=== PATIENT | female | born 1985 | race Caucasian/White ===

== ENCOUNTER 2023-05-29 10:25 | Emergency (ER) | payer OTHER ==
[~2023-05-29] VITALS: Ht 165.1 cm; Wt 77.1 kg
[~2023-05-29 10:25] MED LIST: LEVE1000 MT
[2023-05-29 10:33] VITALS: O2SAT 97
[2023-05-29] MEDS ORDERED: LEVETIRACETAM 1000MG PREMIX 100 ML IV ONE (11:00)
[2023-05-29 12:15] LABS: BASOPHILS % 0.2 % (0.0-2.0); HEMATOCRIT. 38.4 % (36.0-48.0); HEMOGLOBIN. 12.6 g/dL (12.0-16.0); MEAN CORPUSCULAR HEMOGLOBIN 31.2 pg (28.0-32.0); MEAN CORPUSCULAR HGB CONC 32.9 g/dL (31.0-37.0); MEAN CORPUSCULAR VOLUME 94.7 fL (81.0-99.0); MEAN PLATELET VOLUME 9.2 fl (7.4-10.4); MONOCYTES % 7.8 % (2.0-8.0); PLATELET 195 x1000/uL (130-400); RED BLOOD CELL COUNT 4.05 mill/uL (4.2-5.4); RED CELL DISTRIBUTION WIDTH 15.5 % (11.6-14.6); WHITE BLOOD COUNT 6.7 x1000/uL (4.5-11.0)
[2023-05-29 12:36] LABS: CLARITY URINE CLEAR (CLEAR); COLOR URINE YELLOW (YELLOW); GLUCOSE URINE NEGATIVE (NEGATIVE); KETONES URINE NEGATIVE (NEGATIVE); LEUKOCYTE ESTERASE URINE NEGATIVE (NEGATIVE); NITRITE URINE NEGATIVE (NEGATIVE); OCCULT BLOOD URINE NEGATIVE (NEGATIVE); PH URINE 6.5 (4.5-8.0); PROTEIN URINE NEGATIVE (NEGATIVE); SPECIFIC GRAVITY URINE 1.011 (1.005-1.030); UROBILINOGEN URINE 0.2 E.U./dL (0.2-1.0)
[2023-05-29] MEDS ORDERED: KEPP500 PO (13:27)
[2023-05-29 13:48] LABS: INDEX HEMOLYSI 2 (1-3); INDEX ICTERIC 1 (1-4); INDEX LIPEMIC 1 (1-3)
[2023-05-29 14:16] LABS: ALANINE AMINOTRANSFERASE 19 IU/L (13-61); ALBUMIN 3.3 g/dL (3.4-5.0); ASPARTATE AMINOTRANSFERASE 17 IU/L (15-37); BILIRUBIN TOTAL 0.3 mg/dL (0.1-1.0); CALCIUM 8.6 mg/dL (8.5-10.1); CARBON DIOXIDE 20 mEq/L (21-32); CREATININE 0.5 mg/dL (0.6-1.3); ETHANOL BLOOD < 10 mg/dL (<10); GLUCOSE 90 mg/dL (70-105); PROTEIN TOTAL 7.2 g/dL (6.0-8.3); UREA NITROGEN BLOOD 6 mg/dL (7-21)
[2023-05-29 14:20] VITALS: BP 100/52; PULSE 61; RESP 18; TEMP 97.9
[2023-05-29 16:00] LABS: CHLORIDE 111 mEq/L (98-107); SODIUM 141 mEq/L (136-145)
[2023-05-29 18:54] LABS: *AMPHETAMINES SCREEN URINE NEGATIVE (NEGATIVE); *BARBITURATES SCREEN URINE NEGATIVE (NEGATIVE); *BENZODIAZEPINES SCREEN URINE NEGATIVE (NEGATIVE); *COCAINE SCREEN URINE NEGATIVE (NEGATIVE); CANNABINOID URINE SCREEN NEGATIVE (NEGATIVE); ECSTASY MDMA SCREEN URINE NEGATIVE (NEGATIVE); OPIATES URINE SCREEN NEGATIVE (NEGATIVE); PHENCYCLIDINE URINE SCREEN NEGATIVE (NEGATIVE)
== END 2023-05-29 15:49 | disposition home or self-care (01) ==
LOC: ER 10:25
DX: R56.9 Unspecified convulsions (principal)
CPT/HCPCS: 80053; 80305; 81003; 80320; 85025; 36415; 96365; 99284; J1953; Z7610 ×2; G0480

== ENCOUNTER 2023-06-28 17:55 | Emergency (ER) | payer OTHER ==
[~2023-06-28] VITALS: Ht 177.8 cm; Wt 73.0 kg
[~2023-06-28 17:55] MED LIST changes: +KEPP500 PO
[2023-06-28 17:57] VITALS: BP 114/66; PULSE 90; RESP 18; TEMP 99.3; O2SAT 99
[2023-06-28] MEDS ORDERED: LEVETIRACETAM 1000MG PREMIX 100 ML IV ONE (18:15)
[2023-06-28 19:48] LABS: BASOPHILS % 0.6 % (0.0-2.0); EOSINOPHILS % 1.9 % (0.0-5.0); HEMATOCRIT. 38.6 % (36.0-48.0); HEMOGLOBIN. 12.9 g/dL (12.0-16.0); MEAN CORPUSCULAR HEMOGLOBIN 31.5 pg (28.0-32.0); MEAN CORPUSCULAR HGB CONC 33.5 g/dL (31.0-37.0); MEAN CORPUSCULAR VOLUME 93.9 fL (81.0-99.0); MONOCYTES % 6.7 % (2.0-8.0); NEUTROPHILS % 53.8 % (40.0-76.0); PLATELET 184 x1000/uL (130-400); RED BLOOD CELL COUNT 4.11 mill/uL (4.2-5.4); RED CELL DISTRIBUTION WIDTH 13.8 % (11.6-14.6)
[2023-06-28 19:57] LABS: DIFFERENTIAL COMMENT 1
[2023-06-28 19:58] LABS: CHLORIDE 110 mEq/L (98-107); INDEX HEMOLYSI 4 (1-3); INDEX ICTERIC 1 (1-4); INDEX LIPEMIC 1 (1-3); SODIUM 137 mEq/L (136-145)
[2023-06-28 20:08] LABS: ALANINE AMINOTRANSFERASE 20 IU/L (13-61); ALBUMIN 3.5 g/dL (3.4-5.0); ASPARTATE AMINOTRANSFERASE 29 IU/L (15-37); BILIRUBIN TOTAL 0.3 mg/dL (0.1-1.0); CARBON DIOXIDE 24 mEq/L (21-32); CREATININE 0.4 mg/dL (0.6-1.3); GLUCOSE 74 mg/dL (70-105); PHOSPHORUS 3.8 mg/dL (2.5-4.9); PROTEIN TOTAL 7.6 g/dL (6.0-8.3); UREA NITROGEN BLOOD 10 mg/dL (7-21)
[2023-06-28 20:10] LABS: HCG SCREEN NEGATIVE
[2023-06-28 20:22] LABS: POTASSIUM 4.7 mEq/L (3.5-5.1)
== END 2023-06-28 22:29 | disposition home or self-care (01) ==
LOC: ER 17:55
DX: R56.9 Unspecified convulsions (principal)
CPT/HCPCS: 80053; 82962; 84703; 83735; 84100; 85025; 36415; 93005; 96365; 99284; J1953; Z7610

== ENCOUNTER 2023-07-25 10:33 | Emergency (ER) | payer OTHER ==
[~2023-07-25] VITALS: Ht 170.2 cm; Wt 64.0 kg
[~2023-07-25 10:33] MED LIST changes: -KEPP500 PO
[2023-07-25 10:40] VITALS: O2SAT 97
[2023-07-25] MEDS ORDERED: LEVETIRACETAM 500MG PREMIX 100 ML IV ONE ×2 (12:30)
[2023-07-25 13:05] VITALS: BP 110/74; PULSE 95; RESP 20; TEMP 98.1
[2023-07-25 13:16] LABS: BASOPHILS % 0.4 % (0.0-2.0); EOSINOPHILS % 0.6 % (0.0-5.0); HEMATOCRIT. 42.1 % (36.0-48.0); HEMOGLOBIN. 14.4 g/dL (12.0-16.0); LYMPHOCYTES % 17.4 % (20.0-50.0); MEAN CORPUSCULAR HEMOGLOBIN 31.8 pg (28.0-32.0); MEAN CORPUSCULAR HGB CONC 34.2 g/dL (31.0-37.0); MEAN CORPUSCULAR VOLUME 93.2 fL (81.0-99.0); MEAN PLATELET VOLUME 9.6 fl (7.4-10.4); MONOCYTES % 5.7 % (2.0-8.0); NEUTROPHILS % 75.9 % (40.0-76.0); PLATELET 124 x1000/uL (130-400); RED BLOOD CELL COUNT 4.52 mill/uL (4.2-5.4); RED CELL DISTRIBUTION WIDTH 13.7 % (11.6-14.6); WHITE BLOOD COUNT 8.3 x1000/uL (4.5-11.0)
[2023-07-25 13:27] LABS: ALANINE AMINOTRANSFERASE 53 IU/L (10-49); ALBUMIN 4.3 g/dL (3.2-4.8); ASPARTATE AMINOTRANSFERASE 71 IU/L (<34); BILIRUBIN TOTAL 0.7 mg/dL (0.1-1.0); CALCIUM 8.8 mg/dL (8.7-10.4); CARBON DIOXIDE 24 mEq/L (21-32); CHLORIDE 103 mEq/L (98-107); CREATININE 0.5 mg/dL (0.6-1.0); GLUCOSE 71 mg/dL (70-105); POTASSIUM 3.9 mEq/L (3.5-5.1); PROTEIN TOTAL 7.7 g/dL (6.0-8.3); SODIUM 140 mEq/L (136-145); UREA NITROGEN BLOOD 15 mg/dL (9-23)
[2023-07-25 13:45] LABS: HCG SCREEN NEGATIVE
[2023-07-25] MEDS ORDERED: LEVE1000 MT ×3 (14:13→14:16)
[2023-07-25] MEDS ORDERED: ACETAMINOPHEN 325MG TABLET PO ONE (14:30)
== END 2023-07-25 17:33 | disposition home or self-care (01) ==
LOC: ER 11:10
DX: G40.909 Epilepsy, unspecified, not intractable, without status epilepticus (principal); F79 Unspecified intellectual disabilities; Z91.148 Patient's other noncompliance with medication regimen for other reason; Z86.73 Personal history of transient ischemic attack (TIA), and cerebral infarction without residual deficits
CPT/HCPCS: 99284; 96365; 80053; 84703; 85025; 36415; J1953

== ENCOUNTER 2023-07-26 23:46 | Emergency (ER) | payer OTHER ==
[~2023-07-26] VITALS: Ht 165.1 cm; Wt 77.0 kg
[2023-07-26 23:55] VITALS: O2SAT 97
[2023-07-27] MEDS ORDERED: LEVETIRACETAM 1000MG PREMIX 100 ML IV ONE (01:15)
[2023-07-27 04:49] VITALS: BP 124/66; PULSE 62; RESP 18; TEMP 98.5
== END 2023-07-27 04:53 | disposition home or self-care (01) ==
LOC: ER 23:46
DX: R56.9 Unspecified convulsions (principal); Z98.890 Other specified postprocedural states
CPT/HCPCS: 99291; 96374; J1953

== ENCOUNTER 2023-07-27 07:13 | Emergency (ER) | payer OTHER ==
[~2023-07-27] VITALS: Ht 162.6 cm; Wt 62.0 kg
[2023-07-27 07:15] VITALS: O2SAT 98
[2023-07-27 13:25] VITALS: BP 106/60; PULSE 95; RESP 17; TEMP 98.3
== END 2023-07-27 13:59 | disposition home or self-care (01) ==
LOC: ER 07:31
DX: G40.909 Epilepsy, unspecified, not intractable, without status epilepticus (principal); F10.10 Alcohol abuse, uncomplicated; F19.90 Other psychoactive substance use, unspecified, uncomplicated; Z91.148 Patient's other noncompliance with medication regimen for other reason; Z98.890 Other specified postprocedural states; Y90.9 Presence of alcohol in blood, level not specified
CPT/HCPCS: 99285

== ENCOUNTER 2023-07-29 01:02 | Emergency (ER) | payer OTHER ==
[~2023-07-29] VITALS: Ht 172.7 cm; Wt 69.0 kg
[2023-07-29 01:03] VITALS: O2SAT 98
[2023-07-29] MEDS ORDERED: LEVETIRACETAM 500MG PREMIX 100 ML IV ONE (01:15)
[2023-07-29] MEDS ORDERED: ACETAMINOPHEN 325MG TABLET PO ONE (01:15)
[2023-07-29 01:48] LABS: BASOPHILS % 0.7 % (0.0-2.0); EOSINOPHILS % 0.9 % (0.0-5.0); HEMATOCRIT. 47.2 % (36.0-48.0); HEMOGLOBIN. 15.3 g/dL (12.0-16.0); LYMPHOCYTES % 43.5 % (20.0-50.0); MEAN CORPUSCULAR HEMOGLOBIN 31.4 pg (28.0-32.0); MEAN CORPUSCULAR HGB CONC 32.5 g/dL (31.0-37.0); MEAN CORPUSCULAR VOLUME 96.7 fL (81.0-99.0); MEAN PLATELET VOLUME 9.3 fl (7.4-10.4); MONOCYTES % 9.1 % (2.0-8.0); NEUTROPHILS % 45.8 % (40.0-76.0); PLATELET 120 x1000/uL (130-400); RED BLOOD CELL COUNT 4.88 mill/uL (4.2-5.4); RED CELL DISTRIBUTION WIDTH 14.3 % (11.6-14.6); WHITE BLOOD COUNT 6.1 x1000/uL (4.5-11.0)
[2023-07-29 02:00] LABS: HCG SCREEN NEGATIVE
[2023-07-29 02:11] LABS: ACETAMINOPHEN < 2 ug/mL (10-30); ALANINE AMINOTRANSFERASE 266 IU/L (10-49); ALBUMIN 4.3 g/dL (3.2-4.8); ASPARTATE AMINOTRANSFERASE 463 IU/L (<34); BILIRUBIN TOTAL 0.5 mg/dL (0.1-1.0); CALCIUM 8.9 mg/dL (8.7-10.4); CARBON DIOXIDE 23 mEq/L (21-32); CHLORIDE 103 mEq/L (98-107); CREATININE 0.5 mg/dL (0.6-1.0); ETHANOL BLOOD 385 mg/dL (<10); GLUCOSE 103 mg/dL (70-105); POTASSIUM 3.6 mEq/L (3.5-5.1); PROTEIN TOTAL 7.9 g/dL (6.0-8.3); SODIUM 138 mEq/L (136-145); UREA NITROGEN BLOOD 6 mg/dL (9-23)
[2023-07-29 03:46] LABS: CLARITY URINE CLOUDY (CLEAR); COLOR URINE ORANGE (YELLOW); GLUCOSE URINE NEGATIVE (NEGATIVE); KETONES URINE TRACE (NEGATIVE); LEUKOCYTE ESTERASE URINE TRACE (NEGATIVE); NITRITE URINE NEGATIVE (NEGATIVE); OCCULT BLOOD URINE 3+ (NEGATIVE); PROTEIN URINE 2+ (NEGATIVE)
[2023-07-29 04:14] LABS: *AMPHETAMINES SCREEN URINE PRESUMPTIVE POSITIVE (NEGATIVE); *BARBITURATES SCREEN URINE NEGATIVE (NEGATIVE); *BENZODIAZEPINES SCREEN URINE NEGATIVE (NEGATIVE); *COCAINE SCREEN URINE NEGATIVE (NEGATIVE); CANNABINOID URINE SCREEN NEGATIVE (NEGATIVE); ECSTASY MDMA SCREEN URINE NEGATIVE (NEGATIVE); METHADONE URINE SCREEN Neg (NEGATIVE); OPIATES URINE SCREEN NEGATIVE (NEGATIVE); PHENCYCLIDINE URINE SCREEN NEGATIVE (NEGATIVE)
[2023-07-29 06:31] LABS: SQUAMOUS EPITHELIAL CELL URINE FEW /lpf (RARE/1+)
[2023-07-29 06:33] LABS: WBC URINE 0-2 /hpf (0-2)
[2023-07-29 06:34] LABS: RBC URINE 0-2 /hpf (0-2)
[2023-07-29 06:35] LABS: BACTERIA URINE NONE SEEN
[2023-07-29 07:11] VITALS: BP 108/84; PULSE 84; RESP 21; TEMP 98.2
== END 2023-07-29 09:45 | disposition short-term general hospital (02) ==
LOC: ER 01:07
DX: F10.129 Alcohol abuse with intoxication, unspecified (principal); G92.9 Unspecified toxic encephalopathy; R56.9 Unspecified convulsions; Z59.00 Homelessness unspecified; Z98.890 Other specified postprocedural states; Y90.8 Blood alcohol level of 240 mg/100 ml or more
CPT/HCPCS: 80053; 80305; 81003; 81025; 80307; 80329; 80320; 82962; 84703; 85025; 36415; 70450; 96365; 99285; J1953; Z7610 ×3; G0480